=== PATIENT | female | born 1985 | race African-American/Black ===

== ENCOUNTER 2019-01-17 06:41 | Emergency (ER) | payer OTHER ==
[~2019-01-17] VITALS: Ht 170.2 cm; Wt 75.3 kg
[~2019-01-17 06:41] MED LIST: ACETAMINOPHEN-1 EAC1 PO; AUGMENTIN 875875 MG PO; BACTRIM DS TAB1 EACH PO; CIPRO EAR DROPS OPHTHALMIC; CIPROFLOXACIN500 M1 PO; FLAGYL500 MG PO; KEFLEX500 MG PO; PRENATAL VITAM1 EAC6; PROMETHAZINE/C118 ML PO; SLOW FE 160MG160 MG PO
[2019-01-17] MEDS ORDERED: IBUPROFEN 800800 MG PO (07:41)
[2019-01-17] MEDS ORDERED: ACETAMINOPHEN-1 EAC1 PO (07:41)
[2019-01-17] MEDS ORDERED: KEFLEX500 M1 PO (07:41)
[2019-01-17 07:52] VITALS: BP 128/74
== END 2019-01-17 07:53 | disposition home or self-care (01) ==
LOC: M.ERS 06:41
DX: H66.41 Suppurative otitis media, unspecified, right ear (principal)

== ENCOUNTER 2021-07-06 21:41 | Emergency (ER) | payer OTHER ==
[~2021-07-06] VITALS: Ht 157.5 cm; Wt 74.8 kg
[~2021-07-06 21:41] MED LIST changes: +IBUPROFEN 800800 MG PO; +KEFLEX500 M1 PO
[2021-07-06] MEDS ORDERED: AUGMENTIN 875-1 EACH (22:03)
[2021-07-06] MEDS ORDERED: MONTELUKAST SODI4 M1 (22:03)
[2021-07-06 23:08] VITALS: BP 125/79
== END 2021-07-06 23:10 | disposition home or self-care (01) ==
LOC: M.ERS 21:41
DX: R09.81 Nasal congestion (principal); Z98.51 Tubal ligation status; Z79.899 Other long term (current) drug therapy